=== PATIENT | female | born 1960 | race Caucasian/White ===

== ENCOUNTER 2017-01-25 06:14 | Day surgery (SDC) | payer BC ==
[2017-01-23 10:18] LABS: HEMATOCRIT 37.9 % (36.0-48.0); HEMOGLOBIN 12.7 g/dL (12.0-16.0)
[2017-01-23 10:44] LABS: A/G RATIO 1.1 (0.7-1.9); ALBUMIN 3.9 G/DL (3.5-5.0); ALKALINE PHOSPHATASE 70 U/L (45-117); BUN (BLOOD UREA NITROGEN) 16 MG/DL (6-23); CALCIUM, SERUM 9.1 MG/DL (8.5-10.4); CHLORIDE, SERUM 103 MMOL/L (96-112); CO2 (CARBON DIOXIDE) 28 MMOL/L (24-34); CREATININE 0.71 MG/DL (0.55-1.02); GFR AFRICAN AMERICAN 111 ML/MIN (>=60); GFR NON AFRICAN AMERICAN 96 ML/MIN (>=60); GLOBULIN 3.4 G/DL (2.5-4.1); GLUCOSE, SERUM 253 MG/DL (60-99); POTASSIUM, SERUM 4.5 MMOL/L (3.5-5.3); SGOT(AST) 9 U/L (5-40); SGPT(ALT) 14 U/L (5-65); SODIUM, SERUM 142 MMOL/L (135-148); TOTAL BILIRUBIN 0.5 MG/DL (0-1.2); TOTAL PROTEIN 7.3 G/DL (6.0-8.5)
--- NOTE | ~2017-01-25 | OP ---
Record Of Operation [facility] [address] [place] [place]. [address] NAME: PARI CISNEROS : 62 STATUS : REG [facility] [place] PAT#: [id number] AGE: 56 ADM/REG DATE : 01/25/17 MR#: [id number] REPORT SERV DATE: 01/25/17 DICTATED BY: JOHNATHAN CARR DATE: 01/25/17 REPORT STATUS : Draft TRANSCRIBED BY: MODL DATE: 01/25/17 DATE OF PROCEDURE: 01/25/2017 PREOPERATIVE DIAGNOSES: 1. Chronic cholecystitis with cholelithiasis. 2. Incarcerated umbilical hernia. PROCEDURE: 1. Laparoscopic cholecystectomy (2 site). 2. Primary repair of incarcerated umbilical hernia. SURGEON: Johnathan Carr M.D. DESCRIPTION OF OPERATIVE PROCEDURE: The patient was brought to the operating suite, placed in supine position, underwent satisfactory general endotracheal anesthesia without incident. The skin of the abdomen was scrubbed, prepped, and draped in usual sterile fashion. Marcaine 0.5% with epinephrine was utilized as supplemental local anesthesia at all intended trocar sites. Initially, a curvilinear infraumbilical incision was performed just below the umbilical fascial defect. The umbilical fascia was grasped and elevated and a disposable Veress insufflation needle was inserted through the umbilical fascia into the peritoneal cavity. Intraperitoneal tip location was next ascertained using the saline hanging drop method. Following this CO2 was insufflated for pressures of 15 mmHg throughout the case. After adequate insufflation and pressure were achieved, the Veress needle was removed, disposable bladed shielded 12 mm trocar was inserted through the umbilical fascia into the peritoneal cavity, following which a rigid forward-viewing 10 mm laparoscope was inserted. Visualization of the intraabdominal parietes revealed no evidence of injury from initial insufflation or puncture. A cursory examination of the pelvis, the appendix was noted and appeared to be normal. Attention was turned to the upper abdomen where an additional 5 mm trocar was placed just to the right of the falciform ligament. An additional 5 mm grasping instrument was inserted through the umbilical fascia next to the umbilical trocar. The patient was placed in reverse Trendelenburg position, and the fundus and body of the gallbladder were grasped and elevated sequentially. There were fairly dense periduodenal and duodenal adhesions itself to the infundibulum of the gallbladder. These were taken down with sharp dissection to avoid cautery near the duodenal wall. Dissection in the triangle of Calot was successful in identifying, and skeletonizing the cystic duct, and cystic duct common duct junction, as well as the cystic artery. Both of these structures were controlled with multiple applications of the Weck 5 mm polymer clip system and divided. The cystic venules were handled in the same fashion. Record Of Operation [facility] [address] [place]. [address] NAME: PARI CISNEROS : 62 STATUS : REG [facility] [place] PAT#: [id number] AGE: 56 ADM/REG DATE : 01/25/17 MR#: [id number] REPORT SERV DATE: 01/25/17 DICTATED BY: JOHNATHAN CARR DATE: 01/25/17 REPORT STATUS : Draft TRANSCRIBED BY: SULTANA DATE: 01/25/17 The gallbladder was dissected free from the subhepatic space and hemostasis was assured. Next, the gallbladder was transferred to an Endo retrieval pouch and placed through the umbilical port for retrieval. The camera had been switched to the 5 mm epigastric port. Trocars were removed. No muscular bleeding was noted. The gallbladder was withdrawn through the umbilicus. It was opened, aspirated free of bile, and a very large 2.5 cm stone was crushed and removed intact. CO2 was allowed to egress from the peritoneal cavity. Then attention was turned to repair the umbilical defect. The umbilical skin was elevated off the hernia sac. The hernia sac as well as incarcerated preperitoneal fat was excised leaving a 1.5 cm defect. Using three separately placed sutures of 0 Ethibond in a "[id number]" interrupted vertical mattress fashion, the cephalad aspect of the umbilical fascia was drawn over the caudad aspect, these sutures were tied down, and then the subcutaneous tissue was irrigated. The subcutaneous tissue was closed with interrupted 3-0 Vicryl and running subcuticular stitch 4-0 Vicryl after trimming the redundant umbilical skin. Dermabond and skin adhesive were applied. The patient tolerated the procedure well and she was returned to PACU in stable condition. At the termination of the procedure sponge, needle, lap, and instrument counts were correct x3. ESTIMATED BLOOD LOSS: Less than 5 to 10 mL. WR/SULTANA Johnathan Carr M.D. / [id number] CC: Jacquelyn Restrepo M.D.
[~2017-01-25 06:14] MED LIST: AMARYL4 PO; FISH OIL; GLUCPH; MULTIVITAMIN; T
== END 2017-01-25 23:59 | disposition home or self-care (01) ==
LOC: MSC 06:14
PROVIDERS: Specialist
PROC: 0FT44ZZ Resection of Gallbladder, Percutaneous Endoscopic Approach (ICD-10-PCS; principal; 2017-01-25 07:45)
PROC: 0WQF0ZZ Repair Abdominal Wall, Open Approach (ICD-10-PCS; 2017-01-25 07:45)
DX: K80.10 Calculus of gallbladder with chronic cholecystitis without obstruction (principal); K42.9 Umbilical hernia without obstruction or gangrene; E11.9 Type 2 diabetes mellitus without complications; I10 Essential (primary) hypertension; I45.10 Unspecified right bundle-branch block; Z79.899 Other long term (current) drug therapy; Z79.84 Long term (current) use of oral hypoglycemic drugs
CPT/HCPCS: 80053; 82962; 85014; 85018; 88304; 93005; A9270-GY; J0690; J1885; J2250; J2405; J2710; J3010

== ENCOUNTER 2017-01-26 14:30 | Emergency (ER) | payer BC ==
[2017-01-26 11:40] LABS: BASOPHILS 0.4 %; BASOPHILS ABSOLUTE 0.02 10/3/uL (0.0-0.16); EOSINOPHILS 0.4 %; EOSINOPHILS ABSOLUTE 0.02 10/3/uL (0.0-0.53); ER CBC TAT 0 Hrs 08 Mins; HEMATOCRIT 40.1 % (36.0-48.0); HEMOGLOBIN 13.5 g/dL (12.0-16.0); IMMATURE GRANULOCYTES 0.2 %; IMMATURE GRANULOCYTES ABSOLUTE 0.01 10/3/uL (0.0-0.11); LYMPHOCYTES 11.3 %; LYMPHOCYTES ABSOLUTE 0.54 10/3/uL (0.67-4.30); MANUAL DIFF NO %; MEAN CORPUS HGB CONC 33.7 g/dL (32.0-36.0); MEAN CORPUSCULAR HEMOGLOB 30.6 pg (26.0-34.0); MEAN CORPUSCULAR VOLUME 90.9 fL (80-100); MEAN PLATELET VOLUME 8.8 fL (9.2-13.0); MONOCYTES 5.9 %; MONOCYTES ABSOLUTE 0.28 10/3/uL (0.21-1.20); NEUTROPHILS 81.8 %; NEUTROPHILS ABSOLUTE 3.91 10/3/uL (2.02-8.40); PLATELET COUNT 299 10/3/uL (150-400); RBC DISTRIBUTION WIDTH 13.1 % (12.0-16.0); RED CELL COUNT 4.41 10/6/uL (4.0-5.6); WHITE BLOOD CELLS 4.8 10/3/uL (4.5-10.5)
[2017-01-26 11:55] LABS: ALBUMIN 3.8 G/DL (3.5-5.0); ALKALINE PHOSPHATASE 65 U/L (45-117); BUN (BLOOD UREA NITROGEN) 8 MG/DL (6-23); CALCIUM, SERUM 8.6 MG/DL (8.5-10.4); CHLORIDE, SERUM 106 MMOL/L (96-112); CO2 (CARBON DIOXIDE) 25 MMOL/L (24-34); CREATININE 0.72 MG/DL (0.55-1.02); GFR AFRICAN AMERICAN 109 ML/MIN (>=60); GFR NON AFRICAN AMERICAN 94 ML/MIN (>=60); GLOBULIN 3.8 G/DL (2.5-4.1); GLUCOSE, SERUM 184 MG/DL (60-99); POTASSIUM, SERUM 3.7 MMOL/L (3.5-5.3); SGOT(AST) 36 U/L (5-40); SGPT(ALT) 47 U/L (5-65); SODIUM, SERUM 140 MMOL/L (135-148); TOTAL BILIRUBIN 0.4 MG/DL (0-1.2); TOTAL PROTEIN 7.6 G/DL (6.0-8.5)
[2017-01-26 14:07] LABS: INFLUENZA A SCREEN NEGATIVE (NEGATIVE); INFLUENZA B SCREEN NEGATIVE (NEGATIVE)
[2017-01-26 14:38] LABS: ASCORBIC ACID (UR NOT ORDER) NEG (NEG); BILIRUBIN, URINE NEGATIVE (NEG); ER URINALYSIS TAT 0 Hrs 22 Mins; KETONE, URINE 80 MG/DL (NEG); LEUKOCYTE ESTERASE(NOT OR NEG (NEG); NITRITE (URINE) NEG (NEG); WBC (NOT ORDERED) (RFLEX) 4 (0-5)
== END 2017-01-26 17:43 | disposition home or self-care (01) ==
LOC: ER 14:30
PROVIDERS: Hospitalist; Nurse Practitioner
DX: M79.1 Myalgia (principal); R50.9 Fever, unspecified; E11.9 Type 2 diabetes mellitus without complications; Z79.84 Long term (current) use of oral hypoglycemic drugs; Z79.899 Other long term (current) drug therapy
CPT/HCPCS: 71020; 74177; 80053; 81001; 85025; 87040; 87804; 96374; 99284; J2405; Q9967